=== PATIENT | female | born 2000 | race Caucasian/White ===

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

== ENCOUNTER → 2024-10-29 | Outpatient (CLI) | payer OTHER | END | disposition home or self-care (01) | LOC: LAB SHORT 18:12 → LAB 18:12 | DX: N92.6 Irregular menstruation, unspecified (principal) | CPT/HCPCS: 84702 ==